=== PATIENT | female | born 1950 | race Caucasian/White ===

== ENCOUNTER 2019-03-12 07:18 | Day surgery (SDC) | payer MEDICARE, BC ==
[~2019-03-12 07:18] MED LIST: Lactated Ringers 1,000 ML IV SCH; Sodium Chloride 0.9% 10 ML Syringe FLUSH PRN
[2019-03-12] MEDS ORDERED: Propofol 200 MG/20 ML SDV IV ONE (07:19)
[2019-03-12] MEDS ORDERED: Lidocaine 2% 100 MG/5 ML Syringe IVPUSH ONE (07:19)
--- NOTE | 2019-03-12 08:48 | PCM.OPNOTE ---
- General Post-Op/Procedure Note Date of Surgery/Procedure: 03/12/19 Operative Procedure(s): egd with bx Findings: mild gastritis thrush Pre Op Diagnosis: dysphagia. epigastric abd pain Post-Op Diagnosis: mild gastritis. thrush Anesthesia Technique: AMMON Primary Surgeon: Eduar Joseph Anesthesia Provider: David Chapman Pathology: stomach and esophagus Complications: None Condition: Good Free Text/Narrative:: see dictation
[2019-03-12 09:47] VITALS: BP 153/77; PULSE 62
--- NOTE | 2019-03-13 07:56 | OR ---
DATE OF OPERATION: 03/12/2019 SURGEON: Eduar Joseph MD PROCEDURE PERFORMED: Upper endoscopy with cold forceps biopsy. PREOPERATIVE DIAGNOSIS: Personal history of swallowing issues, as well as epigastric abdominal discomfort. POSTOPERATIVE DIAGNOSES: Gastritis and questionable thrush. INDICATIONS FOR PROCEDURE: This is a 69-year-old white female, who presents for the above-mentioned complaints. She was offered and accepted an upper endoscopy. DESCRIPTION OF OPERATION: After an excellent IV sedation was administered, the bite block was inserted. The flexible endoscope was passed without difficulty down the patient's esophagus into the stomach. Stomach was insufflated and scope was passed through the pylorus to the second portion of the duodenum and then slowly withdrawn. Following findings were noted. In the duodenum, it was unremarkable. Stomach demonstrated some diffuse erythema, very mild appearing in the antrum. Multiple biopsies were taken. GE junction measured approximately 35 cm. In the esophagus, while there was no marked erythema, there were patches of adherent scattered white material that were more prevalent in the proximal half of the esophagus versus the distal half. This appeared to be more adherent than a medication. Several biopsies were taken in the area to confirm the possible diagnosis of thrush. The patient tolerated the procedure well. We will be sending results by letter. /[id number] /[id number]
== END 2019-03-12 09:42 | disposition home or self-care (01) ==
LOC: FB.SDS 07:18
PROVIDERS: ATTEND Surgery
DX: K29.50 Unspecified chronic gastritis without bleeding (principal); K21.0 Gastro-esophageal reflux disease with esophagitis; F41.9 Anxiety disorder, unspecified; M19.90 Unspecified osteoarthritis, unspecified site; Z79.51 Long term (current) use of inhaled steroids; Z79.1 Long term (current) use of non-steroidal anti-inflammatories (NSAID); Z79.899 Other long term (current) drug therapy
CPT/HCPCS: 00731; 43239; 88305; 88312; 88342; J2001; J2704; J7120